=== PATIENT | female | born 2005 | race Two or more races ===

== ENCOUNTER 2025-01-26 07:47 | Emergency (ER) | payer OTHER, SELFPAY ==
[~2025-01-26] VITALS: Ht 160 cm; Wt 78.9 kg
--- NOTE | 2025-01-26 08:33 | ED.PDOC ---
History of Present Illness HPI Comments 19 year old female presents to the ED with a chief complaint of fever onset 5 days. Patient states she has been experiencing fever as well as cough for the past 5 days. Patient states highest fever was 101.8F, has not taken any medication. Denies vomiting, diarrhea, headache, dizziness, recent travel, dysuria, hematuria, sore throat. No other symptoms or modifying factors present at this time. Chief Complaint: Fever Time Seen by MD: 08:25 Reviewed Notes: Medications, Allergies Information Source: Patient Mode of Arrival: Ambulatory Timing: Days Duration: Since onset Prehospital treatment: None Severity: Moderate Fever: Temperature max (100.5F) Symptoms: Fever, Cough Past Medical History PAST MEDICAL HISTORY: Denies Surgical History: Denies all surgeries REAL ESTATE DEVELOPER History: No Pertinent REAL ESTATE DEVELOPER History Family History Family History: Reviewed,noncontributory to illness, No family hx of Cancer, No family hx of DM, No family hx of Heart manuel, No family hx of HTN, No family hx ofKidney manuel, No family hx of Liver manuel, No family hx of Lung manuel, No family hx of Stroke Social History Smoker: Non-Smoker Alcohol: Denies ETOH Use Drugs: Denies Drug Use Lives In: Home Constitutional: Fever EENTM: No Symptoms Reported Respiratory: Cough Cardiovascular: No Symptoms Reported Gastrointestinal: No Symptoms Reported Genitourinary: No Symptoms Reported Neurological: No Symptoms Reported Musculoskeletal: No Symptoms Reported Integumentary: No Symptoms Reported Allergic/Immunocompromised: others Hematologic/Lymphatic: No Symptoms Reported Endocrine: No Symptoms Reported Psychiatric: No symptoms Reported All Other Systems: Reviewed and Negative Physical Exam General Appearance: Moderate Distress, Normal HEENT: Normal ENT Inspection, Pharynx Normal, TMs Normal Neck: Full Range of Motion, Non-Tender, Normal, Normal Inspection Respiratory: Chest Non-Tender, Lungs Clear, No Accessory Muscle Use, No Respiratory Distress, Normal Breath Sounds Cardiovascular: No Edema, No JVD, No Murmur, No Gallop, Normal Peripheral Pulses, Regular Rate/Rhythm Breast Exam: Deferred Gastrointestinal: No Organomegaly, Non Tender, No Pulsatile Mass, Normal Bowel Sounds, Soft Genitalia: Deferred Pelvic: Deferred Rectal: Deferred Extremities: No calf tenderness, Normal capillary refill, Normal inspection, Normal range of motion, Non-tender, No pedal edema Musculoskeletal : Apperance: Normal Neurologic: Alert, cloud automation tester II-XII nml as Tested, No Motor Deficits, Normal Affect, Normal Mood, No Sensory Deficits Cerebellar Function: Normal Reflexes: Normal Skin: Dry, Normal Color, Warm Peripheral Pulses: 3+ Radial (R), 3+ Radial (L) Lymphatic: No Adenopathy Was a procedure done? Was a procedure done?: No Fever Differential Dx Differential Diagnosis: Pneumonia, Pneumonitis X-Ray, Labs, Meds, VS Vital Signs Date Time Temp Pulse Resp B/P (MAP) Pulse Ox O2 Delivery O2 Flow Rate FiO2 01/26/25 08:11 99.2 120 18 124/79 (94) 96 99.2 01/26/25 07:49 100.5 125 18 127/90 96 100.5 Lab Test 01/26/25 08:31 Range/Units Urine Color Yellow Yellow Urine Clarity Turbid H Clear Urine pH 5.5 5.0-9.0 Urine Specific Maceo 1.026 1.001-1.035 Urine Protein Trace H Negative Urine Ketones 3+ H Negative Urine Blood 2+ H Negative /uL Urine Nitrite Negative Negative Urine Bilirubin Negative Negative Urine Urobilinogen Normal Negative mg/dL Urine Leukocyte Esterase 1+ Negative /uL Urine RBC 13 0 - 4 /hpf Urine Microscopic WBC 8 H 0-5 /HPF Urine Squamous Epithelial Cells Few <5 /hpf Urine Bacteria Few H None Seen /hpf Urine Mucus Few None Seen Urine Glucose Normal Normal mg/dL Patient alert. Complaining of fever cough. Urinalysis shows his shows UTI. Possible pyelonephritis. Vitals stable. Answering questions. No leg swelling. Saturation pristine on room air. Chest x-ray reviewed does show possible early pneumonitis. Was given prescription of prednisone Bactrim. Was told to follow up with her primary care physician. Was told to come back if there is any problem. Time of 1ST Reevaluation: 08:55 Reevaluation 1ST: Unchanged Patient Education/Counseling: Diagnosis, Treatment, Prognosis Family Education/Counseling: No Family Present SEPSIS Sepsis Screen Date sepsis recognized/suspect: Jan 26, 2025 Time Sepsis recognized/suspect: 0753 Recent Procedure: No On Antibiotic Therapy: No Respiratory Rate >20: No Heart Rate >90: Yes Temp<36 C (96.8 F) or >38.3 C: Yes SBP <90 or MAP <65 mmHG: No New Acute Mental Status Change: No Is the patient on CPAP, BIPAP,: No Physician Orders Chest Portable (11/25/25 08:26) Vital Signs Date Time Temp Pulse Resp B/P (MAP) Pulse Ox O2 Delivery O2 Flow Rate FiO2 01/26/25 08:11 99.2 120 18 124/79 (94) 96 99.2 01/26/25 07:49 100.5 125 18 127/90 96 100.5 Departure 1 Departure Time of Disposition: 10:14 Impression: Primary Impression: Pyelonephritis Additional Impressions: Fever Qualified Codes: R50.9 - Fever, unspecified Pneumonitis Disposition: HOME / SELF CARE / HOMELESS Condition: Good e-Prescriptions Sulfamethoxazole W/Trimethopri (Bactrim Ds Tablet) 1 Tab Tb 1 TAB PO BID for 10 Days, #20 TAB Prov: BRYON MAN MD 01/26/25 Prednisone (Prednisone) 20 Mg Tab 20 MG PO DAILY for 5 Days, #5 MG Prov: BRYON MAN MD 01/26/25 Discharged With: Self Critical Care Note Critical Care Time?: No Stability Stability form required: No Heart Score Heart Score: Heart Score Response (Comments) Value History N/A 0 EKG N/A 0 Age N/A 0 Risk Factors N/A 0 Troponin N/A 0 Total 0 I personally scribed for BRYON MAN MD ([email or web address]) on 01/26/25 at 08:33. Electronically submitted by Keli Martinez ([email or web address]). BRYON MAN MD Jan 26, 2025 08:33
[2025-01-26 08:59] LABS: Urine Protein, UAD TRACE (Negative)
--- NOTE | 2025-01-26 09:09 | DVH ---
CHEST RADIOGRAPH Indication: sob Technique: Single frontal view of the chest was obtained Comparison: None FINDINGS: Lines and Tubes: None Lungs: Hazy airspace disease right lower lobe abutting the minor fissure suggesting possible right middle lobe involvement. Left lung field appears clear Pleura: No effusion. No pneumothorax. Cardiomediastinal contours: Unremarkable Bones: No acute osseous abnormality. IMPRESSION: 1. Hazy airspace disease right lower lobe abutting the minor fissure suggesting possible right middle lobe involvement.
[2025-01-26] MEDS ORDERED: PRED20TA2 PO (10:16)
[2025-01-26] MEDS ORDERED: BACDST PO (10:16)
[2025-01-26 10:25] VITALS: BP 136/84; PULSE 115; RESP 16; O2SAT 96
[2025-01-26 10:31] VITALS: TEMP 102.8
[2025-01-26] MEDS: ACETAMINOPHEN 500 MG TAB or CAP PO ONE (10:31)
== END 2025-01-26 11:00 | disposition home or self-care (01) ==
LOC: ER 07:53
DX: N12 Tubulo-interstitial nephritis, not specified as acute or chronic (principal); J18.9 Pneumonia, unspecified organism
CPT/HCPCS: 71045; 81001